=== PATIENT | female | born 1995 | race Caucasian/White ===

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

== ENCOUNTER 2017-08-05 19:40 | Emergency (ER) | payer OTHER ==
[~2017-08-05] VITALS: Ht 170.2 cm; Wt 60.7 kg
[2017-08-05 20:26] LABS: BASOPHILS # (AUTO) 0.04 x10^3/uL (0-0.3); BASOPHILS % (AUTO) 1 % (0-1); EOSINOPHILS # (AUTO) 0.11 x10^3/uL (0-0.8); EOSINOPHILS % (AUTO) 2 % (1-7); LYMPHOCYTES # (AUTO) 1.72 x10^3/uL (1-6.1); LYMPHOCYTES % (AUTO) 23 % (22-44); MD NO; MEAN CORPUSCULAR HGB CONC 33.7 g/dL (32.4-35.8); MEAN PLATELET VOLUME 8.1 fL (7.4-10.4); MONOCYTES % (AUTO) 5 % (2-9); NEUTROPHILS # (AUTO) 5.36 x10^3/uL (1.8-8.0); NEUTROPHILS % (AUTO) 70 % (42-75); PLATELET COUNT 296 x10^3/uL (130-400); RED BLOOD COUNT 4.44 x10^6/uL (3.82-5.3); RED CELL DISTRIBUTION WIDTH 13.3 % (9.6-15.2)
[2017-08-05 20:36] LABS: ALBUMIN 4.1 g/dL (3.4-5.0); ANION GAP 9 mmol/L (5-15); CALCIUM 8.9 mg/dL (8.5-10.1); CHLORIDE 104 mmol/L (98-107); CREATININE 0.72 mg/dL (0.55-1.02)
[2017-08-05] MEDS ORDERED: NEXPLANON (20:49)
[2017-08-05 20:58] LABS: CULTURE INDICATED? YES; MICROSCOPIC INDICATED
[2017-08-05 22:03] VITALS: BP 116/52
== END 2017-08-05 22:18 | disposition home or self-care (01) ==
LOC: ED 22:00
DX: N30.01 Acute cystitis with hematuria (principal)
CPT/HCPCS: 36415; 80048; 81001; 82040; 84703; 85025; 87077; 87086; 87186; 99284

== ENCOUNTER 2018-02-04 06:03 | Emergency (ER) | payer OTHER ==
[~2018-02-04] VITALS: Ht 167.6 cm; Wt 62.9 kg
[~2018-02-04 06:03] MED LIST changes: +NEXPLANON
[2018-02-04 06:20] VITALS: BP 112/75
[2018-02-04] MEDS ORDERED: PHENAZOPYRIDINE 200 MG TABLET PO ONE (07:00)
[2018-02-04 07:03] LABS: CULTURE INDICATED? YES; MICROSCOPIC INDICATED
[2018-02-04] MEDS ORDERED: PHENAZOPYRIDINE 200 MG TABLET ONE (07:04)
[2018-02-04 07:07] LABS: HCG UR SG 1.027 (1.003-1.030)
== END 2018-02-04 07:58 | disposition home or self-care (01) ==
LOC: ED 07:30
DX: N30.01 Acute cystitis with hematuria (principal); J45.909 Unspecified asthma, uncomplicated
CPT/HCPCS: 81001; 81025; 87086; 99284

== ENCOUNTER 2020-01-01 12:49 | Emergency (ER) | payer OTHER ==
[~2020-01-01] VITALS: Ht 167.6 cm; Wt 65.2 kg
[2020-01-01 13:10] VITALS: BP 124/80
--- NOTE | 2020-01-01 13:46 | NUR ---
[employer] FABRICATOR AND ASSEMBLER: PT AMBULATORY TO ROOM FROM LOBBY
[2020-01-01 14:06] LABS: MICROSCOPIC INDICATED
--- NOTE | 2020-01-01 15:04 | NUR ---
BREAK RN: Patient/Caregiver given discharge instructions and they have confirmed that they understand the instructions. Patient ambulatory with steady gait.
== END 2020-01-01 15:05 | disposition home or self-care (01) ==
LOC: ED 14:24
DX: N30.00 Acute cystitis without hematuria (principal); R30.0 Dysuria; R39.15 Urgency of urination; J45.909 Unspecified asthma, uncomplicated
CPT/HCPCS: 81001; 87086; 99283

== ENCOUNTER 2020-01-31 17:08 | Emergency (ER) | payer OTHER ==
--- NOTE | 2020-01-31 18:15 | NUR ---
PT SIGNED REQUEST FOR DISCHARGE AT REGISTRATION AND LEFT.
== END 2020-01-31 18:16 | disposition left against medical advice (07) ==
LOC: ED 17:38
DX: R30.9 Painful micturition, unspecified (principal); Z53.21 Procedure and treatment not carried out due to patient leaving prior to being seen by health care provider

== ENCOUNTER 2020-04-11 05:52 | Emergency (ER) | payer OTHER ==
[~2020-04-11] VITALS: Ht 165.1 cm; Wt 70.2 kg
[2020-04-11] MEDS ORDERED: PHENAZOPYRIDINE 200 MG TABLET ONE (06:21)
[2020-04-11 06:30] LABS: HCG UR SG 1.025 (1.003-1.030); MICROSCOPIC INDICATED
[2020-04-11] MEDS ORDERED: PHENAZOPYRIDINE 200 MG TABLET PO ONE (06:30)
[2020-04-11] MEDS ORDERED: ALBU90AE PO (06:50)
[2020-04-11 06:56] VITALS: BP 124/72
== END 2020-04-11 06:59 | disposition home or self-care (01) ==
LOC: ED 06:30
DX: N30.00 Acute cystitis without hematuria (principal); J45.909 Unspecified asthma, uncomplicated; Z90.89 Acquired absence of other organs
CPT/HCPCS: 81001; 81025; 87086; 99283